=== PATIENT | female | born 2000 | race Caucasian/White ===

== ENCOUNTER 2022-09-16 20:21 | Emergency (ER) | payer MEDICAID ==
[2022-09-16] MEDS ORDERED: Ketorolac Tromethamine 30 MG/ML VIAL ONE (20:53)
[2022-09-16] MEDS ORDERED: Cyclobenzaprine 10 MG TAB ONE (20:54)
== END 2022-09-16 20:58 | disposition home or self-care (01) ==
LOC: CSHERS 20:21
DX: M62.830 Muscle spasm of back (principal)
CPT/HCPCS: 96372; 99283; J1885